=== PATIENT | female | born 1995 | race Hispanic/Latino ===

== ENCOUNTER 2017-07-06 14:57 | Emergency (ER) | payer SELFPAY ==
[2017-07-06] MEDS ORDERED: KETOROLAC TROMETHAMINE 60 MG/2 ML VIAL ONE (17:12)
== END 2017-07-06 17:42 | disposition home or self-care (01) ==
LOC: EDH 14:57
DX: M76.52 Patellar tendinitis, left knee (principal); M76.51 Patellar tendinitis, right knee
CPT/HCPCS: 81025; 96372; 99283; J1885

== ENCOUNTER 2021-01-13 14:56 | Observation (INO) | payer BC ==
[~2021-01-13] VITALS: Ht 154.9 cm; Wt 69.4 kg
[2021-01-13 15:39] LABS: BASOPHILS % (AUTO) 0.4 % (0.0-5.0); EOSINOPHILS % (AUTO) 1.8 % (0.0-8.0); HEMATOCRIT 40.5 % (36-48); LYMPHOCYTES % (AUTO) 21.2 % (21.0-51.0); MEAN CORPUSCULAR HEMOGLOBIN 29.2 pg (27.0-33.0); MEAN CORPUSCULAR HGB CONC 34.6 g/dL (32.0-36.0); MEAN CORPUSCULAR VOLUME 84.6 fL (79-99); MONOCYTES % (AUTO) 3.7 % (3.0-13.0); NEUTROPHILS % (AUTO) 72.5 % (40.0-77.0); PLATELET COUNT (AUTO) 266 K/uL (130-400); RED BLOOD CELL COUNT(AUTO) 4.79 MIL/uL (4.00-5.50); RED CELL DISTRIBUTION WIDTH 11.9 % (11.0-15.5); WHITE BLOOD COUNT (AUTO) 8.3 K/uL (4.8-10.8)
[2021-01-13] MEDS ORDERED: MEPERIDINE-PF 50 MG/ML SYG IM PRN (19:30)
[2021-01-13] MEDS ORDERED: PROMETHAZINE HCL 25 MG/ML 1ML AMPULE IM PRN (19:30)
[2021-01-13 21:00] VITALS: BP 124/77
[2021-01-13] MEDS: LACTATED RINGERS 1000ML 1,000 ML IV SCH (21:36)
[2021-01-13 23:50] VITALS: BP_SYST 113; BP_SYST 82; BP_DIAS 44; BP_DIAS 64
[2021-01-14 03:50] VITALS: BP 103/68
[2021-01-14] MEDS: LACTATED RINGERS 1000ML 1,000 ML IV SCH (07:16)
[2021-01-14 07:51] LABS: HEMATOCRIT 37.5 % (36-48); MEAN CORPUSCULAR HEMOGLOBIN 29.2 pg (27.0-33.0); MEAN CORPUSCULAR HGB CONC 33.6 g/dL (32.0-36.0); RED BLOOD CELL COUNT(AUTO) 4.31 MIL/uL (4.00-5.50); RED CELL DISTRIBUTION WIDTH 11.9 % (11.0-15.5); WHITE BLOOD COUNT (AUTO) 5.7 K/uL (4.8-10.8)
[2021-01-14 08:00] VITALS: BP 108/84
[2021-01-14 12:00] VITALS: BP 117/64
[2021-01-14 15:49] VITALS: BP 121/62
[2021-01-14] MEDS ORDERED: IBUP-2088 PO (17:43)
[2021-01-17 12:12] LABS: CHLAMYDIA DNA N.A.AMPLIFY Negative (Negative)
== END 2021-01-14 18:10 | disposition home or self-care (01) ==
LOC: EDH 14:56 → INTOOBSV 18:00 → EDHIP 18:00 → WSH 20:28
PROVIDERS: ADMIT Obstetrics & Gynecology; ATTEND Obstetrics & Gynecology
DX: O03.9 Complete or unspecified spontaneous abortion without complication (principal); Z20.822 Contact with and (suspected) exposure to COVID-19; N92.6 Irregular menstruation, unspecified
CPT/HCPCS: 36415 ×2; 76817 ×2; 81025; 84702 ×2; 85025; 85027; 86900; 86901; 87210; 87486; 87635; 87797; 96360; 96361 ×2; 99284; G0378 ×23; J7120 ×2

== ENCOUNTER 2021-06-19 16:27 | Emergency (ER) | payer BC, MEDICAID ==
[~2021-06-19] VITALS: Ht 154.9 cm; Wt 66.7 kg
[~2021-06-19 16:27] MED LIST: IBUP-2088 PO
[2021-06-19 17:00] LABS: BASOPHILS % (AUTO) 0.2 % (0.0-5.0); EOSINOPHILS % (AUTO) 3.7 % (0.0-8.0); HEMATOCRIT 36.3 % (36-48); LYMPHOCYTES % (AUTO) 14.5 % (21.0-51.0); MEAN CORPUSCULAR HEMOGLOBIN 28.6 pg (27.0-33.0); MEAN CORPUSCULAR HGB CONC 34.7 g/dL (32.0-36.0); MEAN CORPUSCULAR VOLUME 82.5 fL (79-99); MONOCYTES % (AUTO) 4.6 % (3.0-13.0); NEUTROPHILS % (AUTO) 76.4 % (40.0-77.0); PLATELET COUNT (AUTO) 220 K/uL (130-400); RED CELL DISTRIBUTION WIDTH 12.7 % (11.0-15.5); WHITE BLOOD COUNT (AUTO) 8.2 K/uL (4.8-10.8)
[2021-06-19] MEDS ORDERED: 0.9%NACL 1000ML 1,000 ML IV ONE ×2 (17:00)
[2021-06-19 17:20] LABS: CREATININE 0.6 mg/dL (0.5-1.5); POTASSIUM 3.3 mmol/L (3.5-5.1)
[2021-06-19 17:24] LABS: ALBUMIN 3.5 g/dL (3.5-5.0); BILIRUBIN,TOTAL 0.4 mg/dL (0.2-1.0); TOTAL PROTEIN, SERUM 7.3 g/dL (6.0-8.3)
[2021-06-19] MEDS ORDERED: ONDANSETRON 4MG INJ IVP ONE (17:30)
[2021-06-19] MEDS ORDERED: POTASSIUM BICARB/CIT AC 25 MEQ TABLET.EFF PO ONE (18:30)
[2021-06-19 19:00] LABS: APPEARANCE,URINE Cloudy (CLEAR); BILIRUBIN,URINE Negative (NEGATIVE); COLOR,URINE Yellow (YELLOW); GLUCOSE, URINE (UA) Negative (NEGATIVE); KETONES,URINE Negative (NEGATIVE); LEUKOCYTE ESTERASE ,URINE Trace (NEGATIVE); NITRATE,URINE Negative (NEGATIVE); OCCULT BLOOD,URINE Negative (NEGATIVE); PH,URINE 6.5 (5.0-8.0); PROTEIN,URINE Negative (NEGATIVE)
[2021-06-19 19:20] LABS: RBC,URINE 0-1 /HPF (0-1)
[2021-06-19 19:21] LABS: BACTERIA,URINE Rare /HPF (None Seen); MUCUS,URINE Few LPF (None Seen); SQUAMOUS EPITHELIAL CELL,UR Many /HPF (0-2)
[2021-06-19] MEDS ORDERED: CEPH500B PO (19:42)
[2021-06-19 20:00] VITALS: BP 100/63
== END 2021-06-19 20:11 | disposition home or self-care (01) ==
LOC: EDH 16:27
DX: O21.0 Mild hyperemesis gravidarum (principal); O23.42 Unspecified infection of urinary tract in pregnancy, second trimester; N39.0 Urinary tract infection, site not specified; Z88.6 Allergy status to analgesic agent; Z90.89 Acquired absence of other organs; Z3A.14 14 weeks gestation of pregnancy
CPT/HCPCS: 36415; 80053; 81001; 85025; 96361; 96374; 99284; J2405; J7030

== ENCOUNTER 2021-08-20 14:12 | Observation (INO) | payer BC, MEDICAID ==
[~2021-08-20] VITALS: Ht 154.9 cm; Wt 70.8 kg
[~2021-08-20 14:12] MED LIST changes: +CEPH500B PO
[2021-08-20 14:50] LABS: APPEARANCE,URINE Cloudy (CLEAR); BILIRUBIN,URINE Negative (NEGATIVE); COLOR,URINE Yellow (YELLOW); GLUCOSE, URINE (UA) Negative (NEGATIVE); KETONES,URINE 40 mg/dL (NEGATIVE); LEUKOCYTE ESTERASE ,URINE Trace (NEGATIVE); NITRATE,URINE Negative (NEGATIVE); OCCULT BLOOD,URINE Negative (NEGATIVE); PROTEIN,URINE Negative (NEGATIVE)
[2021-08-20] MEDS ORDERED: LACTATED RINGERS 1000ML 1,000 ML IV ONE (14:51)
[2021-08-20 15:06] LABS: RBC,URINE 0-1 /HPF (0-1)
[2021-08-20 15:07] LABS: BACTERIA,URINE Few /HPF (None Seen); SQUAMOUS EPITHELIAL CELL,UR Moderate /HPF (0-2); TRANSITIONAL EPI CELLS,URINE Few /HPF (None Seen); YEAST,URINE BUDDING Few /HPF (None Seen)
[2021-08-20] MEDS ORDERED: LACTATED RINGERS 1000ML 1,000 ML IV PRN (16:00)
[2021-08-20 16:31] VITALS: BP 112/64
[2021-08-20] MEDS ORDERED: ACETAMINOPHEN 325 MG TAB PO ONE (17:00)
== END 2021-08-20 18:17 | disposition home or self-care (01) ==
LOC: EDH 14:12 → LDH 14:13
PROVIDERS: ADMIT Obstetrics & Gynecology; ATTEND Obstetrics & Gynecology
DX: O21.2 Late vomiting of pregnancy (principal); Z20.822 Contact with and (suspected) exposure to COVID-19; O26.892 Other specified pregnancy related conditions, second trimester; R19.7 Diarrhea, unspecified; O99.891 Other specified diseases and conditions complicating pregnancy; M79.621 Pain in right upper arm; Z3A.23 23 weeks gestation of pregnancy
CPT/HCPCS: 81001; 87635; 87804 ×2; 96360; 96361; G0378 ×4; G0379; J7120